=== PATIENT | male | born 2000 | race African-American/Black ===

== ENCOUNTER 2020-03-21 11:53 | Emergency (ER) | payer BC, SELFPAY ==
[2020-03-21 12:10] VITALS: BP 172/73; PULSE 101; RESP 18; TEMP 36.6; O2SAT 100
--- NOTE | 2020-03-21 12:17 | ED.GENADULT ---
HPI - General Adult General Chief complaint: Urogenital-Male Stated complaint: Poss exposure to STD Time Seen by Provider: 03/21/20 12:22 Source: patient and RN notes reviewed Mode of arrival: ambulatory Limitations: no limitations History of Present Illness HPI narrative: 19-year-old -Irish male presents with a bump on genital area and possible STD exposure for the past 8 months. Jacky says his girlfriend informed him 8 months that she was diagnosis with with Herpes from a previous relationship and has never had an outbreak to her knowledge. He denies seeing an outbreak during their intercourse episodes, last intercourse episode was 2 days ago. No treatment. Denies dysuria. Denies fever or chills. Denies nausea, vomiting, and abdominal pain. Denies penile pain. No penile discharge. Concern for STDs due to history of unprotected intercourse. Denies unprotected intercourse with multiple partners. No flank pain. No exacerbating. Denies hematuria or unusual penile bleeding. Remains active. The patient reports he have not been diagnosed with COVID-19. The patient reports he is not waiting for the results of a COVID-19 lab test. The patient reports he do not have fever, chills, weakness, or fatigue. The patient reports he do not have a new or worsening cough or shortness of breath. Denies chest pain. The patient reports he do not have any rhinorrhea, congestion, sore throat, and diarrhea. Tolerating po intake well. Denies recent traveling. Denies concerns for COVID-19 or exposures been home with limited outdoor exposure except for essential household needs, work, and return home. At this time, patient is not suspected of having COVID-19. Some parts of this dictation were generated by voice recognition software and may contain typographical and/or grammatical inaccuracies. Related Data Home Medications Medication Instructions Recorded Confirmed No Home Medications 03/21/20 03/21/20 Allergies Allergy/AdvReac Type Severity Reaction Status Date / Time No Known Allergies Allergy Verified 03/21/20 12:22 Review of Systems Review of Systems: Narrative: CONSTITUTIONAL: Denies fever, chills, sweats. EYES: Denies visual changes, redness, discharge. ENT: Denies rhinorrhea, congestion, sore throat, otalgia. CARDIOVASCULAR: Denies chest pain, palpitations, edema. RESPIRATORY: Denies dyspnea, wheezing, cough. GASTROINTESTINAL: Denies abdominal pain, nausea, vomiting, diarrhea. GENITOURINARY: Denies dysuria, hematuria, genital discharge and itching. Complains of possible STD, and lesion on genital area. SKIN: Denies rash or itching. MUSCULOSKELETAL: Denies acute back pain, joint pain, or myalgia. NEUROLOGIC: Denies numbness, or focal weakness. PSYCHIATRIC: Denies anxiety or depression. All systems reviewed & are unremarkable except as noted in HPI and below. PMFSH Past Medical History Medical History (Updated 03/22/20 @ 00:00 by Mallorie Ellis) Eczema Surgical History Surgical History (Updated 03/21/20 @ 13:39 by HANH Iverson) No significant past surgical history Family History Family History (Updated 03/21/20 @ 13:41 by HANH Iverson) Father Unknown family medical history Smoker in home Mother Alive and well Social History Social History (Updated 03/21/20 @ 13:41 by HANH Iverson) Smoking status: Never smoker Second hand tobacco smoke exposure: Yes Alcohol intake: never Substance use: never Living arrangements: with family Occupation/Education: occupation Gender identity (if verbalized by the patient): Male Sexual Orientation (if Verbalized by the Patient): Straight or Heterosexual Comments At time of signature, agree with nurse past medical, surgical, social, and family history. There is no relevant family history pertinent to the presenting complaint. Exam Narrative: Exam Narrative: GENERAL: This is a well-nourished, well-developed pat
== END 2020-03-21 12:46 | disposition home or self-care (01) ==
PROVIDERS: Emergency Provider Nurse Practitioner Family
DX: Z20.2 Contact with and (suspected) exposure to infections with a predominantly sexual mode of transmission (principal)
CPT/HCPCS: 81003; 87491; 87591; 87661; 99213; G0463